=== PATIENT | male | born 1955 | race American Indian/Alaskan Native ===

== ENCOUNTER 2018-06-25 07:36 | Emergency (ER) | payer OTHER ==
[2018-06-25 07:44] VITALS: BMI 28.0
[2018-06-25 07:52] VITALS: RESP 18; O2SAT 100
--- NOTE | 2018-06-25 08:34 | C.PDOC ---
History Of Present Illness 62 y/o male with a pmhx of copd, dm, prior episode of a-fib, not on blood thinners, presents c/o hearing a loud boom in head at 5 am with no associated headache, though pt reports headaches last week. pt states today, while in hospital with partner who was waiting to have an endoscopy, he felt pulsations in eyes 'like a heartbeat' with flashing light and dark; unsure if in one eye or both. Episode resolved in 10 minutes, not present now and has not returned. denies any visual disturbance at this time, denies cp, sob, numbness, tingling, weakness, abdominal pain. reports twitches to right eye intermittently since yesterday. Time Seen by Provider: 06/25/18 08:10 Chief Complaint (Nursing): ENT Problem History Per: Patient History/Exam Limitations: no limitations Onset/Duration Of Symptoms: Mins Current Symptoms Are (Timing): Gone Past Medical History Reviewed: Historical Data, Nursing Documentation, Vital Signs Vital Signs: Last Vital Signs Temp 98.0 F 06/25/18 07:46 Pulse 87 06/25/18 07:46 Resp 18 06/25/18 07:46 BP 137/78 06/25/18 07:46 Pulse Ox 100 06/25/18 07:46 - Medical History PMH: Atrial Fibrillation, COPD, Hypercholesterolemia, Hypothyroidism Family History: States: No Known Family Hx - Social History Hx Alcohol Use: Yes (''QUIT 2002'') Hx Substance Use: No - Immunization History Hx Tetanus Toxoid Vaccination: No Hx Influenza Vaccination: Yes (2017) Hx Pneumococcal Vaccination: Yes (2018) Review Of Systems Constitutional: Negative for: Fever, Chills Eyes: Positive for: Other (eye twitching, +pulsatile sensation). Negative for: Vision Change Cardiovascular: Negative for: Chest Pain Respiratory: Negative for: Shortness of Breath Gastrointestinal: Negative for: Nausea, Vomiting, Abdominal Pain Neurological: Negative for: Weakness, Numbness, Change in Speech, Headache, Dizziness Physical Exam - Physical Exam Appears: Non-toxic, No Acute Distress Skin: Warm, No Rash Head: Atraumatic, Normacephalic Eye(s): bilateral: PERRL (however pupils small), EOMI, Other (No nystagmus) Nose: Normal Oral Mucosa: Moist Neck: Supple Chest: Symmetrical Cardiovascular: Rhythm Regular, No Murmur Respiratory: No Rales, No Rhonchi, No Wheezing, Other (Lungs CTA bilaterally) Gastrointestinal/Abdominal: Soft, No Tenderness, No Distention Extremity: Normal ROM (x 4), No Pedal Edema, No Calf Tenderness Pulses: Left Radial: Normal, Right Radial: Normal Neurological/Psych: Oriented x3, Normal Speech, Normal Cognition, Normal Cranial Nerves (2-12 intact), Normal Motor, Normal Sensation, Other (finger-nose and heel champagne normal, howie intact, no pronator drift) Gait: Steady ED Course And Treatment - Laboratory Results Result Diagrams: 06/25/18 08:48 06/25/18 08:48 O2 Sat by Pulse Oximetry: 100 (RA) Pulse Ox Interpretation: Normal - CT Scan/US Head CT Other Rad Studies (CT/US): Read By Radiologist, Radiology Report Reviewed CT/US Interpretation: IMPRESSION: No acute intracranial abnormality. Brain MRI Other Rad Studies (CT/US): Read By Radiologist, Radiology Report Reviewed CT/US Interpretation: IMPRESSION: No acute intracranial abnormality. Solitary small left frontal subcortical white matter changes is strictly nonspecific and could represent gliosis or early chronic microangiopathic change. Mild age- related global parenchymal volume loss. Medical Decision Making Medical Decision Making: Initial Plan: Basic blood work w/ coag panel ordered. Pending EKG and Head CT. Head CT negative. Will obtain Brain MRI. discussed with Dr Alonso opthalmology earlier. pt can f/u in eye office in [place] today. ct and mri neg for cva Disposition Counseled Patient/Family Regarding: Studies Performed, Diagnosis, Need For Followup - Disposition Referrals: Dimitry Alonso [Staff Provider] - Disposition: HOME/ ROUTINE Disposition Time: 13:36 Condition: GOOD Additional Instructions: Follow up in [facility] today- go straight there from ER. Follow up with your doctor in 1-2 days. Forms: [employer] (Pashto) - Clinical Impression Clinical Impression: Visual disturbance - PA / DIRECTOR FIELD SERVICES / Resident Statement MD/DO has reviewed & agrees with the documentation as recorded. - Scribe Statement The provider has reviewed the documentation as recorded by the Scribe Nadia Chavez All medical record entries made by the Scribe were at my direction and personally dictated by me. I have reviewed the chart and agree that the record accurately reflects my personal performance of the history, physical exam, medical decision making, and the department course for this patient. I have also personally directed, reviewed, and agree with the discharge instructions and disposition.
[2018-06-25 08:57] LABS: BASO % 1.1 % (0.0-2.0); EOS # 0.1 K/uL (0.0-0.7); EOS % 2.4 % (0.0-4.0); HEMOGLOBIN 14.5 g/dL (12.0-18.0); LYMPH # 1.7 K/uL (1.0-4.3); LYMPH % 41.2 % (20.0-40.0); MEAN CELL VOLUME 83.1 fL (80.0-94.0); MEAN CORPUSCULAR HEMOGLOBIN 27.7 pg (27.0-31.0); MEAN CORPUSCULAR HGB CONC 33.3 g/dL (33.0-37.0); MEAN PLATELET VOLUME 8.8 fL (7.2-11.7); MONO # 0.4 K/uL (0.0-0.8); MONO % 10.9 % (0.0-10.0); NEUT # 1.8 K/uL (1.8-7.0); NEUT % 44.4 % (50.0-75.0); NRBC % 0.2 % (0.0-2.0); RBC 5.23 Mil/uL (4.40-5.90); RED CELL DISTRIBUTION WIDTH 13.1 % (11.5-14.5); WHITE BLOOD COUNT 4.1 K/uL (4.8-10.8)
[2018-06-25 09:05] LABS: INR 1.3; PROTHROMBIN TIME 13.8 SECONDS (9.7-12.2)
[2018-06-25 09:07] LABS: BLOOD UREA NITROGEN 23 mg/dL (9-20); CALCIUM 9.7 mg/dl (8.6-10.4); GFR NON-AFRICAN AMERICAN > 60
[2018-06-25 09:12] LABS: ALB/GLOB RATIO 1.5 (1.0-2.1); ALBUMIN 4.5 g/dL (3.5-5.0); ALT/SGPT 33 U/L (21-72); AST/SGOT 51 U/L (17-59)
--- NOTE | 2018-06-25 09:22 | CT ---
Date of service: 06/25/2018 PROCEDURE: CT HEAD WITHOUT CONTRAST. HISTORY: heard a boom in head COMPARISON: None available. TECHNIQUE: Axial computed tomography images were obtained through the head/brain without intravenous contrast. Radiation dose: Total exam DLP = 1015.29 mGy-cm. This CT exam was performed using one or more of the following dose reduction techniques: Automated exposure control, adjustment of the mA and/or kV according to patient size, and/or use of iterative reconstruction technique. FINDINGS: HEMORRHAGE: No intracranial hemorrhage. BRAIN: Willis-white matter differentiation is preserved. There is no mass, mass effect or abnormal extra-axial fluid collection. There is no territorial infarction. The midline sagittal structures are normal. VENTRICLES: There is mild age-related global parenchymal volume loss and proportionate enlargement of the ventricles and cortical sulci. CALVARIUM: There is no calvarial fracture or extracranial soft tissue swelling. PARANASAL SINUSES: Predominantly clear. MASTOID AIR CELLS: Predominantly clear. OTHER FINDINGS: None. IMPRESSION: No acute intracranial abnormality.
--- NOTE | 2018-06-25 13:25 | MRI ---
Date of service: 06/25/2018 PROCEDURE: MRI BRAIN WITHOUT CONTRAST HISTORY: BOOM IN HEAD AND VISUAL SYMPTOMS COMPARISON: CT head without contrast performed earlier the same day TECHNIQUE: Multiplanar, multisequence MR images of the brain were obtained without intravenous contrast enhancement. FINDINGS: HEMORRHAGE: None DWI: No evidence of an acute or early subacute infarction. BRAIN PARENCHYMA: There is a small T2/FLAIR hyperintense focus in the left frontal subcortical white matter. There is no mass, mass effect or abnormal extra-axial fluid collection. The midline sagittal structures are normal. VENTRICLES: There is mild age-related global parenchymal volume loss and proportionate enlargement of the ventricles and cortical sulci. CRANIUM: There is normal bone marrow signal pattern. ORBITS: Grossly unremarkable. PARANASAL SINUSES/MASTOIDS: Predominantly clear. VASCULAR SYSTEM: There are normal signal voids in the larger intracranial arteries. OTHER FINDINGS: None. IMPRESSION: No acute intracranial abnormality. Solitary small left frontal subcortical white matter changes is strictly nonspecific and could represent gliosis or early chronic microangiopathic change. Mild age-related global parenchymal volume loss.
[2018-06-25 13:35] VITALS: BP 118/72; PULSE 69; TEMP 97.7
--- NOTE | 2018-06-26 11:30 | CARD ---
APPROVED REPORT Date of service: 06/25/2018 EKG Measurement Heart [id number] <Conclusion> Normal sinus rhythm T wave abnormality, consider anterior ischemia Abnormal ECG
== END 2018-06-25 13:45 | disposition home or self-care (01) ==
LOC: C.ER 07:36
DX: H53.9 Unspecified visual disturbance (principal); E11.9 Type 2 diabetes mellitus without complications; J44.9 Chronic obstructive pulmonary disease, unspecified; I48.91 Unspecified atrial fibrillation; E78.00 Pure hypercholesterolemia, unspecified; E03.9 Hypothyroidism, unspecified